=== PATIENT | female | born 2000 | race Caucasian/White ===

== ENCOUNTER 2020-03-12 22:18 | Emergency (ER) | payer OTHER ==
[~2020-03-12] VITALS: Ht 167.6 cm; Wt 61.4 kg
[2020-03-12 23:57] LABS: COLLECTION METHOD CLEAN CATCH
[2020-03-13 00:03] LABS: STREP SCREEN NEGATIVE
[2020-03-13 00:05] LABS: MUCOUS Present /lpf; PH 6 (5-8); URINE APPEARANCE Clear; URINE BACTERIA Rare /hpf; URINE BILIRUBIN Negative (NEGATIVE); URINE BLOOD 1+ (NEGATIVE); URINE COLOR Yellow; URINE GLUCOSE Negative (NEGATIVE); URINE KETONE Negative (NEGATIVE); URINE LEUKOCYTE ESTERASE 1+ (NEGATIVE); URINE NITRATE Negative (NEGATIVE); URINE PROTEIN(semi-quant) Negative (NEGATIVE); URINE UROBILINOGEN Negative (NEGATIVE)
[2020-03-13] MEDS ORDERED: CEPHALEXIN500 M1 PO ×3 (00:22→01:23)
[2020-03-13 00:29] VITALS: BP 132/70; PULSE 90; TEMP 98
== END 2020-03-13 00:29 | disposition home or self-care (01) ==
LOC: COL.ER 22:18
PROVIDERS: Emergency Medicine
DX: N39.0 Urinary tract infection, site not specified (principal); J02.9 Acute pharyngitis, unspecified; J01.90 Acute sinusitis, unspecified; Z86.19 Personal history of other infectious and parasitic diseases